=== PATIENT | female | born 1940 | race Caucasian/White ===

== ENCOUNTER → 2016-07-07 | Outpatient (CLI) | payer MEDICARE, OTHER ==
--- NOTE | 2016-07-07 11:35 | US ---
EXAM DESCRIPTION: Liver CLINICAL HISTORY: HEARTBURN COMPARISON: None Available. TECHNIQUE: Right upper quadrant ultrasound] FINDINGS: The liver has a normal appearance. There is no bile duct dilatation. The common bile duct measures 5.2 mm. The gallbladder is normal and contains no stones. Portions of the pancreas seen appear normal The upper abdominal aorta and the inferior vena cava are unremarkable. The right kidney is not imaged. IMPRESSION: Normal right upper quadrant ultrasound Electronically signed by: Ron Amos MD 07/07/2016 11:35 AM CDT
== END | disposition home or self-care (01) ==
LOC: US 10:39
PROVIDERS: ATTEND Family Medicine
DX: I10 Essential (primary) hypertension (principal); R12 Heartburn; D50.0 Iron deficiency anemia secondary to blood loss (chronic); E53.8 Deficiency of other specified B group vitamins

== ENCOUNTER → 2016-07-08 | Outpatient (CLI) | payer MEDICARE, OTHER ==
--- NOTE | 2016-07-08 10:00 | CT ---
Procedure: CT ABDOMEN PELVIS WITHOUT THEN WITH IV CONTRAST Exam Date: 07/08/2016 9:25 AM CDT Ordering Provider: [facility] Clinical Indication: ABDOMINAL MASS Comparison: None TECHNIQUE: The abdomen and pelvis were scanned utilizing a multidetector helical scanner from the diaphragm to the lesser trochanter without and with contrast. Oral contrast was given. Low osmolar IV contrast was given. Coronal and sagittal reformations were obtained. DISCUSSION: LOWER THORAX: Normal. HEPATOBILIARY: No focal hepatic lesions. No biliary ductal dilatation. SPLEEN: No splenomegaly. PANCREAS: No focal masses or ductal dilatation. ADRENALS: No adrenal nodules. KIDNEYS/URETERS: There is a 3.1 x 2.7 cm fat-containing mass which is partially exophytic and arises from the lower pole of the left kidney. 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 No hydronephrosis is present. PELVIC ORGANS/BLADDER: Unremarkable. PERITONEUM / RETROPERITONEUM: No free fluid or free air is present. However, centered within the deep mesentery of the distal jejunum/ileum, there is a densely calcified, heterogeneous mass which measures 1.8 x 3.7 x 4.5 cm. The mass is somewhat infiltrative and difficult to measure. There is associated mild asthma plastic reaction and prominent lymphadenopathy. Largest of the lymph nodes measures 0.7 cm in the short axis. There is slight mass effect on the bowel in this region which is retracted towards this mass. No evidence of high-grade small bowel obstruction. LYMPH NODES: No pathologic adenopathy by size criteria is present. VESSELS: Unremarkable. GI TRACT: Small sliding-type hiatal hernia is present. Colon is mostly unremarkable. Appendix is normal. Sigmoid diverticulosis is present without diverticulitis. BONES AND SOFT TISSUES: Chronic appearing L2 superior endplate compression fracture deformity is present. Bones are osteopenic. IMPRESSION: 1. Densely calcified heterogeneous mass centered within the deep mesentery of the bowel is nonspecific but the top differential consideration is a carcinoid tumor. Other differential considerations are desmoid-type tumor. There is associated mild desmoplastic reaction which results in slight proximal retraction of the small bowel but no evidence of high-grade mechanical small bowel obstruction at this time. Several small bowel loops however appear to be prominent and may be related to early/partial bowel obstruction. Recommend close follow-up with KUB or CT. 2. Small sliding-type hiatal hernia. 3. 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 Consider surveillance with annual CT since the angiomyolipomas of this size have the potential to internally hemorrhage. Electronically signed by: Satish Dewitt MD 07/08/2016 10:00 AM CDT
== END | disposition home or self-care (01) ==
LOC: CT 09:20
PROVIDERS: ATTEND Family Medicine
DX: R19.07 Generalized intra-abdominal and pelvic swelling, mass and lump (principal)

== ENCOUNTER → 2017-08-02 | Outpatient (CLI) | payer MEDICARE, OTHER | LOC: GMAB 10:54 | PROVIDERS: ATTEND Family Medicine | DX: I10 Essential (primary) hypertension (principal) ==

== ENCOUNTER → 2017-08-05 | Outpatient (CLI) | payer MEDICARE, OTHER | LOC: GMAB 12:45 | PROVIDERS: ATTEND Family Medicine | DX: R19.7 Diarrhea, unspecified (principal) ==

== ENCOUNTER → 2017-08-31 | Outpatient (CLI) | payer MEDICARE, OTHER | LOC: LAB.NP 10:53 | PROVIDERS: ATTEND Family Medicine | DX: D64.9 Anemia, unspecified (principal); E53.8 Deficiency of other specified B group vitamins; D50.9 Iron deficiency anemia, unspecified; R94.6 Abnormal results of thyroid function studies ==

== ENCOUNTER → 2018-08-15 | Outpatient (CLI) | payer MEDICARE, OTHER | LOC: GMAE 10:42 | PROVIDERS: ATTEND Family Medicine | DX: R94.6 Abnormal results of thyroid function studies (principal); E78.2 Mixed hyperlipidemia; I10 Essential (primary) hypertension ==

== ENCOUNTER → 2019-08-21 | Outpatient (CLI) | payer MEDICARE, OTHER | LOC: GMAE 12:03 | PROVIDERS: ATTEND Family Medicine | DX: D50.0 Iron deficiency anemia secondary to blood loss (chronic) (principal); E78.2 Mixed hyperlipidemia; I10 Essential (primary) hypertension ==